=== PATIENT | female | born 1955 ===

== ENCOUNTER 2021-08-19 08:00 | Inpatient (IN) | payer OTHER ==
[~2021-08-19] VITALS: Ht 152.4 cm; Wt 65.8 kg
[2021-08-19] MEDS ORDERED: SYNTHROID50 MCG PO (08:43)
[2021-08-19] MEDS ORDERED: GLIPIZIDE ER10 MG PO (08:44)
[2021-08-19] MEDS ORDERED: FAMOTID PO (08:44)
[2021-08-19] MEDS ORDERED: COZAAR50 MG PO (08:45)
[2021-08-19] MEDS ORDERED: ATORVASTATIN CA40 MG PO (08:45)
[2021-08-19] MEDS ORDERED: JANUVIA50 MG PO (08:45)
[2021-08-19] MEDS ORDERED: JARDIANCE25 MG PO (08:46)
[2021-08-24] MEDS ORDERED: PEPCID40 MG PO (07:47)
[2021-08-26] MEDS ORDERED: OXYC1TAB9 PO (06:49)
[2021-08-26] MEDS ORDERED: INTEGRA PLUS C1 EACH PO (06:49)
[2021-08-26] MEDS ORDERED: XARELTO10 MG PO (06:49)
[2021-08-26] MEDS ORDERED: BACTRIM DS TAB1 EACH PO (06:49)
== END 2021-08-26 17:03 | disposition home or self-care (01) | DRG 470 ==
LOC: SURH 08-24 05:30 → O/R 08-24 05:30 → SURH 08-24 07:00
PROVIDERS: ADMIT Orthopaedic Surgery Sports Medicine; ATTEND Orthopaedic Surgery Sports Medicine
PROC: 0SRD0J9 Replacement of Left Knee Joint with Synthetic Substitute, Cemented, Open Approach (ICD-10-PCS; principal; 2021-08-24 07:00)
DX: M17.12 Unilateral primary osteoarthritis, left knee (principal); I10 Essential (primary) hypertension; E03.8 Other specified hypothyroidism; Z20.822 Contact with and (suspected) exposure to COVID-19